=== PATIENT | male | born 1980 | race Caucasian/White ===

== ENCOUNTER 2017-11-09 21:32 | Emergency (ER) | payer OTHER ==
[~2017-11-09] VITALS: Ht 180.3 cm; Wt 147.7 kg
[2017-11-09 21:44] VITALS: Ht 180.3 cm; Wt 147.7 kg
[2017-11-10] MEDS ORDERED: VOLTAREN75 MG PO (00:11)
[2017-11-10] MEDS ORDERED: BACTRIM DS TABL1 TAB PO (00:11)
[2017-11-10 00:30] VITALS: BP 148/79
== END 2017-11-10 00:30 | disposition home or self-care (01) ==
LOC: D.ER 21:32
DX: L03.115 Cellulitis of right lower limb (principal); S91.331A Puncture wound without foreign body, right foot, initial encounter; W45.0XXA Nail entering through skin, initial encounter; Y93.89 Activity, other specified; Y92.019 Unspecified place in single-family (private) house as the place of occurrence of the external cause

== ENCOUNTER 2018-10-25 10:19 | Emergency (ER) | payer MEDICAID ==
[~2018-10-25] VITALS: Ht 180.3 cm; Wt 163.6 kg
[~2018-10-25 10:19] MED LIST: BACTRIM DS TABL1 TAB PO; VOLTAREN75 MG PO
[2018-10-25 10:23] VITALS: Ht 180.3 cm; Wt 163.6 kg
[2018-10-25] MEDS ORDERED: ZITHROMAX250 MG PO (11:17)
[2018-10-25] MEDS ORDERED: ALBUTEROL SULF8.5 GM INH (11:17)
[2018-10-25 11:40] VITALS: BP 142/88
== END 2018-10-25 11:41 | disposition home or self-care (01) ==
LOC: D.ER 10:19
DX: J40 Bronchitis, not specified as acute or chronic (principal)

== ENCOUNTER 2020-09-09 08:42 | Emergency (ER) | payer SELFPAY ==
[~2020-09-09] VITALS: Ht 180.3 cm; Wt 159.1 kg
[~2020-09-09 08:42] MED LIST changes: +ALBUTEROL SULF8.5 GM INH; +ZITHROMAX250 MG PO
[2020-09-09 08:47] VITALS: BP 142/78; Ht 180.3 cm; Wt 159.1 kg
== END 2020-09-09 09:30 | disposition home or self-care (01) ==
LOC: D.ER 08:42
DX: J02.9 Acute pharyngitis, unspecified (principal); Z72.0 Tobacco use